=== PATIENT | male | born 1980 | race Caucasian/White ===

== ENCOUNTER 2022-09-17 09:20 | Emergency (ER) | payer OTHER, SELFPAY ==
[2022-09-17 09:22] VITALS: BP 161/73; PULSE 72; RESP 18; TEMP 36.1; O2SAT 95; BMI 32.3
--- NOTE | 2022-09-17 10:07 | ED_ITS ---
HPI - Extremity Problem General Chief complaint: Extremity Injury, Upper Stated complaint: Infected finger Time Seen by Provider: 09/17/22 09:54 Source: patient Mode of arrival: ambulatory History of Present Illness HPI Narrative: 42-year-old male with no significant past medical history presenting to the ED complaining of left index finger pain, erythema, swelling x5 days. Reports try to drain at with squeezing however unsuccessful. Denies fever, chills, drainage from area, injury MD Complaint: extremity swelling Onset (ago): day(s) Related Data Allergies Allergy/AdvReac Type Severity Reaction Status Date / Time clindamycin Allergy Swelling Verified 09/17/22 09:25 Penicillins Allergy Swelling Verified 09/17/22 09:25 Review of Systems Review of Systems: Constitutional: No Fever, No Chills Cardiovascular: No Chest Pain, No SOB Respiratory: No Cough, No Sputum, No Wheezing Gastrointestinal: No Nausea, No Vomiting, No Diarrhea, No Constipation, No Abdominal pain Musculoskeletal: + joint pain, No Myalgias, No Joint Swelling Skin: +Skin Lesions, No rash Neuro: No Weakness, No Numbness, No Paresthesias Yes all other systems are reviewed and are negative Constitutional: Constitutional: Reports as per [facility] Past Medical History Attestation statement: The following information was validated with the patient. Social History Social History Advance Directives: No Advance Directives Information Provided: Yes Physical Exam Vital Signs: Vital Signs: Last Vital Signs Temp 96.9 F 09/17/22 09:22 Pulse 72 09/17/22 09:22 Resp 18 09/17/22 09:22 BP 161/73 H 09/17/22 09:22 Pulse Ox 95 09/17/22 09:22 O2 Del Method Room Air 09/17/22 09:22 BMI result Body Mass Index 32.3 Const: General: cooperative, healthy appearing, comfortable and no acute distress Orientation/consciousness: patient oriented x3 Limitations: no limitations HEENT: Head: Yes normal to inspection and Yes atraumatic Ears: hearing grossly normal bilaterally General nose exam: Normal external nose present Face and sinus: Yes normal facial exam Eyes: General: appearance normal, both eyes and all related structures EOM: EOMs intact bilaterally Neck: Neck: Yes normal visual inspection and Yes no meningeal signs Resp: Effort & Inspection: normal respiratory effort and no respiratory distress Cardio: Rate: regular rate Peripheral pulses: radial pulses present and ulnar radial pulses present Skin: Rashes: no rashes Neuro: General: patient oriented x3, tone normal and no meningeal signs Gait exam (Neuro): Normal gait present Extrem: Other: + left index finger with noted paronychia. + fluctuance with mild swelling and tenderness. No induration. Full range of motion intact. NV intact Course Course Course Narrative: Results discussed with patient including worrisome signs and symptoms and strict return precautions, and when to return to the emergency department. They verbalized understanding and feel safe for discharge at this time. Medical Decision Making Medical Decision Making MDM Narrative: 42-year-old male with no significant past medical history presenting to the ED complaining of left index finger pain, erythema, swelling x5 days. On exam vital signs stable, NAD, nontoxic, physical exam as above with left index finger paronychia. Will perform I&D. Low suspicion for septic joint/arthritis, or o steo or overlying cellulitis Please refer to course for remaining clinical decision making, interpretation of labs/imaging results, and discussions with consultants and/or family members. Differential Diagnosis Differential Diagnoses: The differential diagnosis associated with the presentation includes As above External Record Review External record reviewed: Inpatient record, Office record, Outpatient record, Prior outpatient labs, Prior outpatient radiology, Primary care record and Outside ED record Procedures Abscess I/D Site: hand Side (if applicable): left Technique: incised with blade Discharge Plan Discharge Clinical Impression: Paronychia of finger Patient Disposition: Home, Self-Care Instructions: Paronychia (ED) Additional Instructions: You have a nail abscess, paronychia, that was drained today in the emergency department, please practice warm soaks at home, continue to express drainage Take Tylenol and Motrin for pain If area begins to look more infected, red, inflamed, has pus drainage, or you have fever return to the ED Referrals: Physician,None [Primary Care Provider] - 2 days Stand Alone Forms: Work/School Release
== END 2022-09-17 10:53 | disposition home or self-care (01) ==
PROVIDERS: Emergency Provider Student in an Organized Health Care Education/Training Program
DX: L03.012 Cellulitis of left finger (principal)
CPT/HCPCS: 10060; 99282; 99284